=== PATIENT | male | born 1975 | race Caucasian/White ===

== ENCOUNTER 2024-01-23 15:41 | Emergency (ER) | payer BC, SELFPAY ==
[2024-01-23 15:49] VITALS: BP 147/99
[2024-01-23 16:01] LABS: Glucose - Point of Care 150 mg/dl (70-99)
[2024-01-23 16:20] LABS: % Basophils 0.7 % (0-2); % Eosinophils 0.6 % (0-6); % Immature Granulocytes 0.3 % (0-0.5); % Lymphocytes 24.6 % (20.5-51.1); % Monocytes 7.2 % (1.7-9.3); % Neutrophils 66.6 % (42.2-75.2); Absolute Basophils 0.1 10^3/uL (0-0.2); Absolute Lymphocytes 1.8 10^3/uL (1.2-3.4); Absolute Monocytes 0.5 10^3/uL (0.1-0.6); Absolute Neutrophils 4.8 10^3/uL (1.4-6.5); Hematocrit 43.5 % (39.0-52.0); Hemoglobin 15.5 g/dL (13.0-18.0); Mean Corp Hgb Conc. 35.6 g/dL (33.0-37.0); Mean Corpuscular Hgb 30.4 pg (27.0-31.0); Mean Corpuscular Volume 85.3 fL (80.0-94.0); Mean Platelet Volume 9.2 fL (7.4-10.4); Nucleated Red Blood Cells % 0 % (-); Platelet Count 237 10^3/uL (130-400); Red Cell Dist. Width 11.5 % (11.5-14.5); White Blood Cell Count 7.3 10^3/uL (4.8-10.8)
[2024-01-23 16:35] VITALS: BMI 31.3
[2024-01-23 16:36] VITALS: BP 140/89
[2024-01-23 16:40] LABS: ALT (SGPT) 28 U/L (0-50); AST (SGOT) 30 U/L (17-59); Albumin 4.7 g/dl (3.5-5.0); Alkaline Phosphatase 77 U/L (38-126); Blood Urea Nitrogen 13 mg/dl (9-20); Carbon Dioxide 28 mmol/L (22-30); Chloride 100 mmol/L (98-107); Estimated Creatinine Clearance > 125 ml/min; Glucose 162 mg/dl (70-99); Potassium 4.8 mmol/L (3.5-5.1); Sodium 136 mmol/L (135-145); Total Bilirubin 0.8 mg/dl (0.2-1.3); Total Protein 7.6 g/dl (6.3-8.2); eGFR > 60.00
[2024-01-23 17:00] VITALS: BP 136/115
--- NOTE | 2024-01-23 17:05 | ED.GENMED ---
History of Present Illness
General
Chief Complaint: Blood Sugar Problem
Source: patient
Exam Limitations: none
Time Seen by Provider: 01/23/24 16:27
Travel History
Have you had any contact with someone who has COVID-19?: No
Do you have any symptoms of coronavirus? Fever > 100 degrees, chills, cough, shortness of breath, sore throat, loss of taste or smell, muscle aches, or headache?: No
History of Present Illness
History of Present Illness:
48-year-old male with a history of insulin-dependent diabetes who recently had a new pump and was having trouble calibrating and so his blood glucose has been a little bit labile. However, despite normal readings he has had intermittent episodes of
diaphoresis and decided come for evaluation. Patient denies chest pain or shortness of breath. This has been ongoing for few weeks. No shortness of breath. No abdominal pain. No fevers. No cough or congestion.
Past History
Past History
ED Past Medical History: IDDM
ED Past Surgical History: Orthopedic
Social History
Tobacco: Non-smoker
Alcohol: None
Phy Exam
Physical Exam
Physical Exam:
CONSTITUTIONAL Patient alert and oriented to person, place and time. Well-appearing. Vital signs reviewed.
HEAD atraumatic, normocephalic.
EYES eyelids normal to inspection, Pupils equally round and reactive to light, Extraocular muscles intact, Conjunctiva normal, Sclera normal.
NECK normal range of motion, Trachea midline, no jugular venous distention.
RESPIRATORY CHEST No respiratory distress noted, Chest expansion equal, Bilateral breath sounds clear.
CARDIOVASCULAR regular rate and rhythm, Heart sounds normal.
ABDOMEN abdomen nontender, Bowel sounds normal. No distention.
BACK normal inspection, no obvious deformities
UPPER EXTREMITY range of motion normal, Motor strength normal, no cyanosis, no edema.
LOWER EXTREMITY range of motion normal, Motor strength normal, no cyanosis, no edema.
NEURO Speech normal, No focal motor deficits, [place] coma scale 15, Memory normal, Cranial Nerves intact to screening exam.
SKIN skin warm, dry, and normal in color.
PSYCHIATRIC patient oriented to person place and time, Normal affect.
Course
Orders/Labs/Results
Orders:
Orders
01/23/24 15:59
Complete Blood Count/With Diff Urgent
Comprehensive Metabolic Panel Urgent
01/23/24 16:56
Electrocardiogram (*1) Urgent
Reason for Study: Other
Other Reason for Exam: diaphoresis
EKG- Treatment ONCE
01/23/24 17:06
COVID-19 Antigen Urgent
Source: Nasal Swab
Influenza A+B Rapid Molecular Stat
[facility]OLITA Source: Nasal Swab
Specimen Description:
Abnormal Lab Results
01/23/24 01/23/24
15:58 15:59
Glucose 162 H mg/dl
(70-99)
POC Glucose 150 H mg/dl
(70-99)
01/23/24 15:59
01/23/24 15:59
Vital Signs
Initial and Last Documented VS:
Initial Vital Signs
Temp Pulse Resp BP Pulse Ox
98.8 F 94 18 147/99 98
01/23/24 15:49 01/23/24 15:49 01/23/24 15:49 01/23/24 15:49 01/23/24 15:49
Last Documented Vital Signs
Temp Pulse Resp BP Pulse Ox
98.8 F 94 18 136/115 93
01/23/24 15:49 01/23/24 15:49 01/23/24 15:49 01/23/24 17:00 01/23/24 16:41
MDM/Problems Addressed
MDM/Problems Addressed:
Insulin-dependent diabetes, hyperglycemia
*Pulse Oximetry
Patient hypoxic: no
*EKG
Interpreted by ED Provider?: Yes
Interpretation: normal
Rate: normal
QRS Pattern: normal QRS
Ischemia: no ischemia
*Parts Representative Interpretation
Rate: normal
Interpretation: normal
Rhythm: sinus
*Critical Care Note
Total Time (30-74mins, 75-104mins- exclusive of procedures): Not Applicable
Data Reviewed
Source: patient
Further Testing Considered But Not Given:
Consider chest x-ray but no respiratory symptoms
Patient Management
Escalation/DeEscalation of care consider admission/obs:
Appears well. Patient comfortable with his labs being unremarkable. Okay for discharge and outpatient follow-up
ED Attending Note
-
Portions of this chart may have been created with voice recognition software.� Occasional wrong word or��sound alike� substitutions may have occurred due to the inherent limitations of voice recognition software.
Discharge Plan
Departure
Patient Disposition: Home (Routine Discharge)
Date of Disposition: 01/23/24
Time of Disposition: 17:05
Patient with high blood pressure during this ER visit?: Yes
Discharge Problem:
Blood glucose labile, Diaphoresis
Instructions: Diabetes Type 1, Adult (DC), BLOOD PRESSURE
Prescriptions:
No Action
cetirizine 10 MG tablet
10 mg PO HS PRN (Reason: allergies)
atorvastatin 10 MG tablet
10 mg PO QPM
fluticasone propionate 1 SPRAY spray,suspension
1 spray intranasal HS PRN (Reason: allegies)
Novolog:
1 dose SC .VIA PUMP,BASAL DOSE
Patient Comments:
basal dose. set to 150-155
meloxicam 15 mg Tablet
15 mg PO DAILY
Tylenol
1,000 mg PO PRN PRN (Reason: pain)
tramadol 50 mg Tablet
50 mg PO DAILY
Activity Restrictions/Additional Instructions:
Please monitor blood glucose regularly and see your doctor in follow-up in the next 3 to 5 days. Return visit for chest pain, shortness of breath, palpitations, weakness of any kind or any other concerns.
Interventions
Interventions:
*Risk Screen - Suicide Last Done: 01/23/24 15:49
*General Assessment Last Done: 01/23/24 15:49
*Neglect/Abuse Screening Last Done: 01/23/24 15:49
ED- Fall Risk Assessment Last Done: 01/23/24 16:35
*ED COVID-19 Vaccine History Last Done: 01/23/24 16:35
*Nursing Disposition Last Done: 01/23/24 17:20
ED- Neurological Assessment Last Done: 01/23/24 16:35
Discharge Date and Time
Discharge Date/Time: 01/23/24 17:21
Print Language: MALTESE
[2024-01-23 17:28] LABS: COVID-19 Antigen Negative (Negative)
== END 2024-01-23 17:21 | disposition home or self-care (01) ==
LOC: EMR 15:41
PROVIDERS: EMERGENCY PHYSICIAN Emergency Medicine; FAMILY PHYSICIAN Family Medicine
DX: E11.65 Type 2 diabetes mellitus with hyperglycemia (principal); Z79.4 Long term (current) use of insulin
CPT/HCPCS: 99283; 80053; 82962; 85025; 87502; 87811; 93005

== ENCOUNTER → 2024-09-04 07:13 | Outpatient (REF) | payer BC, SELFPAY | LOC: MRI 3T 07:13 | PROVIDERS: ATTENDING PHYSICIAN Family Medicine | DX: M54.12 Radiculopathy, cervical region (principal) | CPT/HCPCS: 72141 ==

== ENCOUNTER → 2024-09-24 09:52 | Outpatient (REF) | payer BC, SELFPAY ==
[2024-09-24 11:39] LABS: % Basophils 0.9 % (0-2); % Eosinophils 2.1 % (0-6); % Immature Granulocytes 0.4 % (0-0.5); % Lymphocytes 24.2 % (20.5-51.1); % Monocytes 9.2 % (1.7-9.3); % Neutrophils 63.2 % (42.2-75.2); Absolute Basophils 0.1 10^3/uL (0-0.2); Absolute Eosinophils 0.1 10^3/uL (0-0.7); Absolute Lymphocytes 1.6 10^3/uL (1.2-3.4); Absolute Monocytes 0.6 10^3/uL (0.1-0.6); Absolute Neutrophils 4.3 10^3/uL (1.4-6.5); Hematocrit 46.8 % (39.0-52.0); Hemoglobin 16.1 g/dL (13.0-18.0); Mean Corp Hgb Conc. 34.4 g/dL (33.0-37.0); Mean Corpuscular Hgb 30.5 pg (27.0-31.0); Mean Corpuscular Volume 88.6 fL (80.0-94.0); Mean Platelet Volume 9.2 fL (7.4-10.4); Nucleated Red Blood Cells % 0 % (-); Platelet Count 243 10^3/uL (130-400); Red Blood Cell Count 5.28 10^6/uL (4.70-6.10); Red Cell Dist. Width 11.8 % (11.5-14.5); White Blood Cell Count 6.7 10^3/uL (4.8-10.8)
[2024-09-24 12:36] LABS: ALT (SGPT) 31 U/L (0-50); AST (SGOT) 34 U/L (17-59); Albumin 4.8 g/dl (3.5-5.0); Alkaline Phosphatase 82 U/L (38-126); Blood Urea Nitrogen 18 mg/dl (9-20); Calcium 9.7 mg/dl (8.4-10.2); Carbon Dioxide 30 mmol/L (22-30); Chloride 103 mmol/L (98-107); Glucose 106 mg/dl (70-99); HDL Cholesterol 102 mg/dl; LDL Cholesterol, Calculated 108 mg/dl; Potassium 4.5 mmol/L (3.5-5.1); Sodium 143 mmol/L (135-145); Total Bilirubin 0.5 mg/dl (0.2-1.3); Total Cholesterol 223 mg/dl (50-199); Total Protein 7.6 g/dl (6.3-8.2); Triglyceride 66 mg/dl (10-149); Very Low Density Lipoprotein 13 mg/dl (0-30); eGFR > 60.00
[2024-09-24 12:37] LABS: Microalbumin, Random Urine 1.7 mg/dl (0.6-1.7)
[2024-09-24 12:38] LABS: Glycohemoglobin (HgbA1c) 7.9 % (4.0-5.6)
[2024-09-24 12:45] LABS: Microalbumin/creatinine Ratio 38.5 mg/g
[2024-09-24 13:03] LABS: TSH 1.98 uIU/ml (0.47-4.68)
== END ==
LOC: REG 09:52
PROVIDERS: ATTENDING PHYSICIAN Internal Medicine Endocrinology, Diabetes & Metabolism; FAMILY PHYSICIAN Family Medicine
DX: E10.65 Type 1 diabetes mellitus with hyperglycemia (principal)
CPT/HCPCS: 36415; 80053; 80061; 82043; 82570; 83036; 84443; 85025

== ENCOUNTER 2025-08-19 06:58 | Emergency (ER) | payer BC, SELFPAY ==
[2025-08-19 07:00] VITALS: BP 152/96
[2025-08-19 07:11] VITALS: BMI 32.9
[2025-08-19 07:18] LABS: Glucose - Point of Care 94 mg/dl (70-99)
--- NOTE | 2025-08-19 07:44 | ED.GENMED ---
History of Present Illness
General
Chief Complaint: Blood Sugar Problem
Time Seen by Provider: 08/19/25 07:09
History of Present Illness
History of Present Illness:
50-year-old male with history of type 1 diabetes with insulin pump presenting to the emergency department for hyperglycemia. Patient notes that 2 nights ago he believes that his insulin pump was kinked. Yesterday his blood sugar was 480. He tried
to compensate with bolus dosing of his insulin throughout the day. Notes that he has gotten his sugar down, however still feels off after prolonged period of hyperglycemia. He did dryness to his lips and mouth. Also notes cramping to his calves.
Denies vomiting, chest pain, difficulty breathing, abdominal pain. Denies significant urinary symptoms. Denies any prior history of DKA. Denies additional acute medical complaints
Past History
Past History
ED Past Medical History: IDDM
ED Past Surgical History: Orthopedic
Social History
Tobacco: Non-smoker
Alcohol: None
Phy Exam
Physical Exam
Physical Exam:
General: Well-appearing, dry mucous membranes
HEENT: protecting airway
Neck: appears supple
CV: Normal heart rate, regular rhythm
Resp: No accessory muscle use, no increased work of breathing, lungs clear to auscultation bilaterally
Abd: Soft and non-distended, no tenderness to palpation
Extremities: No deformities, no swelling, no tenderness to the legs bilaterally
Neuro: alert, no focal neurologic deficit
: deferred
Rectal: deferred
Psych: Normal affect
Skin: Intact
Course
Orders/Labs/Results
Orders:
Orders
08/19/25 07:38
B-Hydroxybutyrate Urgent
CPK [Creatine Phosphokinase] Urgent
Complete Blood Count/With Diff Urgent
Comprehensive Metabolic Panel Urgent
Venous Blood Gas Urgent
%Oxygen/Room Air: 21
08/19/25 07:40
Urinalysis Reflex To Culture Urgent
Date Specimen was Collected: 08/19/25
Time Specimen was Collected: 07:39
08/19/25 09:20
0.9% Sodium Chloride 1000 ml [Nss] 1,000 ml IV BOLUS
0.9% Sodium Chloride 1000 ml [Nss] 1,000 ml IV BOLUS
08/19/25 10:22
Ketorolac [Toradol] 15 mg IV NOW STA
Abnormal Lab Results
08/19/25
07:38
WBC 3.9 L 10^3/uL
(4.8-10.8)
Monocytes % 10.4 H %
(1.7-9.3)
VBG pCO2 54 H mmHg
(35-48)
VBG HCO3 30.5 H mmol/L
(22-27)
Creatine Kinase 202 H U/L
(55-170)
08/19/25 07:38
08/19/25 07:38
Vital Signs
Initial and Last Documented VS:
Initial Vital Signs
Temp Pulse Resp BP Pulse Ox
97.8 F 80 18 152/96 97
08/19/25 07:00 08/19/25 07:00 08/19/25 07:00 08/19/25 07:00 08/19/25 07:00
Last Documented Vital Signs
Temp Pulse Resp BP Pulse Ox
97.8 F 76 14 135/78 97
08/19/25 07:00 08/19/25 08:52 08/19/25 08:52 08/19/25 08:52 08/19/25 08:52
MDM/Problems Addressed
MDM/Problems Addressed:
50-year-old male with history of insulin-dependent diabetes with insulin pump presenting for episode of hypoglycemia after his pump was kinked. Vital signs are significant for mild hypertension.
On exam, patient resting comfortably, no acute distress. Does have some dryness to his mucous membranes. Otherwise unremarkable cardiac, pulmonary, abdominal exam. Patient notes that his sugar was elevated all throughout the day yesterday, so
feels that he is still recovering from prolonged hyperglycemia. Sugar on arrival here is 97. Without present concern for DKA. However, patient does clinically appear dehydrated. Also notes cramping to his lower extremities. Rhabdomyolysis also
consideration. Will start patient on IV fluids and plan for screening laboratory analysis including CPK
11:30 -patient's labs are unremarkable. Minimally elevated CPK. Patient feels better after 2 L of fluid. At this time remains hemodynamically stable and appears stable for discharge. Return precautions discussed and patient verbalized
understanding
*Pulse Oximetry
SaO2: 97
Oxygen Mode of Delivery: Room air
Patient hypoxic: no
*Critical Care Note
Total Time (30-74mins, 75-104mins- exclusive of procedures): Not Applicable
ED Attending Note
-
Portions of this chart may have been created with voice recognition software.� Occasional wrong word or��sound alike� substitutions may have occurred due to the inherent limitations of voice recognition software.
Discharge Plan
Departure
Prescriptions:
No Action
cetirizine 10 MG tablet
10 mg PO HS PRN (Reason: allergies)
atorvastatin 10 MG tablet
10 mg PO QPM
fluticasone propionate 1 SPRAY spray,suspension
1 spray intranasal HS PRN (Reason: allegies)
Novolog:
1 dose SC .VIA PUMP,BASAL DOSE
Patient Comments:
basal dose. set to 150-155
meloxicam 15 mg Tablet
15 mg PO DAILY
Tylenol
1,000 mg PO PRN PRN (Reason: pain)
tramadol 50 mg Tablet
50 mg PO DAILY
Referrals:
Sea Lovett DO [Family Provider, Family Practice]
Interventions
Interventions:
*Risk Screen - Suicide Last Done: 08/19/25 07:00
*General Assessment Last Done: 08/19/25 07:00
*Neglect/Abuse Screening Last Done: 08/19/25 07:00
*ED- Fall Risk Assessment Last Done: 08/19/25 07:11
*ED COVID-19 Vaccine History Last Done: 08/19/25 07:11
*ED Influenza Vaccine History Last Done: 08/19/25 07:11
ED- Neurological Assessment Last Done: 08/19/25 07:11
Discharge Date and Time
Print Language: NIGERIAN
[2025-08-19 07:52] LABS: Venous Blood Gas B.E. 3.5 mmol/L (-4 to +4); Venous Blood Gas O2 Sat % 80.1 %
[2025-08-19 07:53] LABS: Hematocrit 42.5 % (39.0-52.0); Hemoglobin 15.0 g/dL (13.0-18.0); Mean Corp Hgb Conc. 35.3 g/dL (33.0-37.0); Mean Corpuscular Volume 85.5 fL (80.0-94.0); Nucleated Red Blood Cells % 0 % (-); Platelet Count 209 10^3/uL (130-400); Red Cell Dist. Width 11.9 % (11.5-14.5)
[2025-08-19 08:06] LABS: ALT (SGPT) 23 U/L (0-50); AST (SGOT) 25 U/L (17-59); Albumin 4.3 g/dl (3.5-5.0); Alkaline Phosphatase 77 U/L (38-126); Blood Urea Nitrogen 17 mg/dl (9-20); Calcium 8.9 mg/dl (8.4-10.2); Carbon Dioxide 30 mmol/L (22-30); Chloride 103 mmol/L (98-107); Estimated Creatinine Clearance 122 ml/min; Glucose 93 mg/dl (70-99); Potassium 4.1 mmol/L (3.5-5.1); Sodium 137 mmol/L (135-145); Total Protein 7.2 g/dl (6.3-8.2); eGFR > 60.00
[2025-08-19 08:31] LABS: Urine Character Clear (Clear)
[2025-08-19 08:52] VITALS: BP 135/78
[2025-08-19] MEDS: NSS 1000 IV ×2 (09:22→09:25)
[2025-08-19] MEDS: TORADOL 15 MG IV (10:30)
[2025-08-19 11:43] VITALS: BP 135/73
== END 2025-08-19 11:44 | disposition home or self-care (01) ==
LOC: EMR 06:58
PROVIDERS: EMERGENCY PHYSICIAN Student in an Organized Health Care Education/Training Program; FAMILY PHYSICIAN Family Medicine
DX: E86.0 Dehydration (principal); E10.649 Type 1 diabetes mellitus with hypoglycemia without coma; E16.A1 Hypoglycemia level 1; I10 Essential (primary) hypertension; Z79.4 Long term (current) use of insulin; Z96.41 Presence of insulin pump (external) (internal)
CPT/HCPCS: 99284; 96360; 96361; 96372; 80053; 81003; 82010; 82550; 82805; 82962; 85025

== ENCOUNTER → 2025-10-11 13:15 | Outpatient (REF) | payer BC, SELFPAY ==
[2025-10-11 14:04] LABS: Hematocrit 43.4 % (39.0-52.0); Hemoglobin 15.1 g/dL (13.0-18.0); Mean Corp Hgb Conc. 34.8 g/dL (33.0-37.0); Mean Corpuscular Volume 86.6 fL (80.0-94.0); Nucleated Red Blood Cells % 0 % (-); Platelet Count 230 10^3/uL (130-400); Red Cell Dist. Width 11.9 % (11.5-14.5)
[2025-10-11 14:30] LABS: ALT (SGPT) 24 U/L (0-50); AST (SGOT) 26 U/L (17-59); Albumin 4.5 g/dl (3.5-5.0); Alkaline Phosphatase 73 U/L (38-126); Blood Urea Nitrogen 15 mg/dl (9-20); Calcium 9.5 mg/dl (8.4-10.2); Carbon Dioxide 28 mmol/L (22-30); Chloride 103 mmol/L (98-107); Glucose 84 mg/dl (70-99); HDL Cholesterol 80 mg/dl; LDL Cholesterol, Calculated 135 mg/dl; Potassium 4.6 mmol/L (3.5-5.1); Sodium 138 mmol/L (135-145); Total Protein 7.5 g/dl (6.3-8.2); Very Low Density Lipoprotein 13 mg/dl (0-30); eGFR > 60.00
[2025-10-11 14:59] LABS: TSH 1.55 uIU/ml (0.47-4.68)
[2025-10-11 15:25] LABS: Microalb - Urine Creatinine 65.300 mg/dl
[2025-10-11 15:36] LABS: Microalbumin, Random Urine < 0.6 mg/dl (0.6-1.7)
[2025-10-12 10:07] LABS: Glycohemoglobin (HgbA1c) 7.7 % (4.0-5.9)
== END ==
LOC: REG 13:15
PROVIDERS: ATTENDING PHYSICIAN Internal Medicine Endocrinology, Diabetes & Metabolism; FAMILY PHYSICIAN Family Medicine
DX: D72.9 Disorder of white blood cells, unspecified (principal); E10.9 Type 1 diabetes mellitus without complications; E78.49 Other hyperlipidemia
CPT/HCPCS: 36415; 80053; 80061; 82043; 82570; 83036; 84439; 84443; 85025